=== PATIENT | male | born 1960 | race Caucasian/White ===

== ENCOUNTER 2017-03-27 10:54 | Inpatient (IN) | payer MEDICARE, MEDICAID ==
--- NOTE | 2017-03-27 10:59 | EDM.PDOC ---
ED HPI GENERAL MEDICAL PROBLEM - General Chief Complaint: Respiratory Problem Stated Complaint: COUGH Time Seen by Provider: 03/27/17 11:11 Source of Information: Reports: Other (Caregiver) History Limitations: Reports: No Limitations - History of Present Illness INITIAL COMMENTS - FREE TEXT/NARRATIVE: HISTORY AND PHYSICAL: History of present illness: Patient is a 56-year-old female who presents to the emergency room with complaints of cough and wheezing 2 days. He has a resident of [facility] due to his mental capacity. Does have routine caregivers in his home. The caregiver at the bedside states that they do have several residents who have pneumonia currently and is concerned he may as well. Has had no fever or chills. Denies any chest pain, shortness of breath, abdominal pain, nausea, vomiting or diarrhea. Has been eating and drinking appropriately. No bowel or bladder complaints or concerns. Has received the [id number] influenza vaccine. Review of systems: As per history of present illness and below otherwise all systems reviewed and negative. Past medical history: As per history of present illness and as reviewed below otherwise noncontributory. Surgical history: As per history of present illness and as reviewed below otherwise noncontributory. Social history: No reported history of drug or alcohol abuse. Family history: As per history of present illness and as reviewed below otherwise noncontributory. Physical exam: Gen.: Well-developed and well-nourished 56-year-old male. Alert and appropriate per self, is mentally challenged (normal variance). Appears in no acute distress HEENT: Atraumatic, normocephalic, pupils reactive, negative for conjunctival pallor or scleral icterus, mucous membranes moist, throat clear, neck supple, nontender, trachea midline. Lungs: Right lower lobe expiratory wheezing/rhonchi noted, breath sounds noted bilaterally, chest nontender. Heart: S1S2, regular, negative for clicks, rubs, or JVD. Abdomen: Soft, nondistended, nontender. Negative for masses or hepatosplenomegaly. Negative for costovertebral tenderness. Pelvis: Stable nontender. Genitourinary: Deferred. Rectal: Deferred. Extremities: Atraumatic, negative for cords or calf pain. Neurovascular unremarkable. Neuro: Awake, alert, oriented. Cranial nerves II through XII unremarkable. Cerebellum unremarkable. Motor and sensory unremarkable throughout. Exam nonfocal. Upon arrival of the patient does have oxygen saturation of 89% on room air. Does have blow-by which increases his O2 to 94%. Patient does have a caregiver at the bedside to help keep him calm and assist with cares as he is restless and slightly difficult to perform assessments. Repeat blood pressure is 114/56. Patient's x-ray does not show an obvious pneumonia or infiltrates. The influenza screen is negative. After the DuoNeb the patient's oxygen saturation does not go above 90%. Nursing staff reports that they have seen and as low as 85% while on room air. Due to the patient's symptoms and clinical appearance did consult Dr. Zuluaga. He is agreeable to keeping the patient her IV antibiotics to treat pneumonia versus pneumonitis. Additional labs have been drawn, along with blood cultures. We'll start the patient on Levaquin IV. Zaki- Margareth is here to see the patient for admission. Diagnostics: Influenza, chest x-ray Therapeutics: Supplemental oxygen Impression: Pneumonitis versus pneumonia Plan: Inpatient admission for IV antibiotics and MedSurg. Definitive disposition and diagnosis as appropriate pending reevaluation and review of above. Duration: Day(s): Location: Reports: Chest - Related Data Allergies Allergy/AdvReac Type Severity Reaction Status Date / Time phenytoin [From Dilantin] Allergy Rash Verified 03/27/17 11:05 Home Meds: Home Meds Allopurinol [Zyloprim] 100 mg PO DAILY 03/27/17 [History] Divalproex Sodium 500 mg PO DAILY 03/27/17 [History] Docusate Sodium [Doc-Q-Lace] 100 mg PO DAILY 03/27/17 [History] FLUoxetine [PROzac] 2 tbsp PO DAILY 03/27/17 [History] Famotidine 20 mg PO DAILY 03/27/17 [History] Lactulose [Kristalose] 10 gm PO DAILY 03/27/17 [History] Multivitamin [Multivitamins] 1 cap PO DAILY 03/27/17 [History] Propranolol [Inderal] 60 mg PO DAILY 03/27/17 [History] Triamcinolone Acetonide [Triamcinolone Acetonide 0.1% Crm] 1 gm TOP DAILY [History] Acetaminophen [Tylenol] 650 mg PO Q4H PRN tablet 03/28/17 [Rx] Levofloxacin [Levaquin] 750 mg PO DAILY #6 tab 03/28/17 [Rx] ED ROS GENERAL - Review of Systems Review Of Systems: ROS reveals no pertinent complaints other than HPI. ED EXAM, GENERAL - Physical Exam Exam: See Below (See dictation) Course - Vital Signs Last Recorded V/S: Last Vital Signs Temp 97.4 F 03/28/17 08:00 Pulse 58 L 03/28/17 08:00 Resp 18 03/28/17 08:00 BP 133/83 03/28/17 08:00 Pulse Ox 100 03/28/17 08:00 - Orders/Labs/Meds Labs: Laboratory Tests 03/27/17 03/27/17 03/27/17 Range/Units 12:10 12:24 12:24 WBC 8.70 (4.0-11.0) K/uL RBC 4.14 L (4.50-5.90) M/uL Hgb 13.2 (13.0-17.0) g/dL Hct 39.3 (38.0-50.0) % MCV 94.9 (80.0-98.0) fL MCH 31.9 (27.0-32.0) pg MCHC 33.6 (31.0-37.0) g/dL RDW Std Deviation 47.6 (28.0-62.0) fl RDW Coeff of Rema 14 (11.0-15.0) % Plt Count 321 (150-400) K/uL MPV 9.00 (7.40-12.00) fL Neut % (Auto) 44.7 L (48.0-80.0) % Lymph % (Auto) 42.1 H (16.0-40.0) % [place] % (Auto) 9.3 (0.0-15.0) % Eos % (Auto) 3.6 (0.0-7.0) % Baso % (Auto) 0.3 (0.0-1.5) % Neut # (Auto) 3.9 (1.4-5.7) K/uL Lymph # (Auto) 3.7 H (0.6-2.4) K/uL [place] # (Auto) 0.8 (0.0-0.8) K/uL Eos # (Auto) 0.3 (0.0-0.7) K/uL Baso # (Auto) 0.0 (0.0-0.1) K/uL Nucleated RBC % 0.0 /100WBC Nucleated RBCs # 0 K/uL ABG pH 7.434 (7.35-7.45) ABG pCO2 41 (35-45) mmHG ABG pO2 65 L (75-100) mmHG ABG HCO3 28 H (22-26) mEq/L ABG Total CO2 24.8 ABG Base Excess 3.0 H (-2.0-2.0) Sodium 139 (136-146) mmol/L Potassium 4.7 (3.5-5.1) mmol/L Chloride 104 (98-110) mmol/L Carbon Dioxide 26 (21-31) mmol/L BUN 20 (6.0-23.0) mg/dL Creatinine 1.0 (0.6-1.5) mg/dL Est Cr Clr Drug Dosing 69.07 mL/min Estimated GFR (MDRD) > 60.0 ml/min Glucose 105 (60-110) mg/dL Calcium 8.8 (8.8-10.8) mg/dL Total Bilirubin 0.5 (0.1-1.5) mg/dL AST 22 (5-40) IU/L ALT 14 (8-54) IU/L Alkaline Phosphatase 91 (40-150) Total Protein 9.1 H (6.0-8.0) g/dL Albumin 3.7 (3.5-5.0) g/dL Globulin 5.4 H (2.0-3.5) g/dL Albumin/Globulin Ratio 0.7 L (1.3-2.8) Meds: Medications Discontinued Medications Generic Name Dose Route Start Last Admin Trade Name Freq PRN Reason Stop Dose Admin Acetaminophen 650 mg 03/27/17 12:45 Tylenol PO Q4H PRN Pain (Mild 1-3)/fever Albuterol/Ipratropium 3 ml 03/27/17 11:51 03/27/17 12:00 Duoneb 3.0-0.5 Mg/3 Ml NEB 03/27/17 11:52 3 ml ONETIME ONE Administration Sodium Chloride 1,000 mls @ 125 mls/hr 03/27/17 12:12 03/27/17 12:50 Normal Saline IV 03/27/17 20:11 125 mls/hr STAT ONE Administration Levofloxacin/Dextrose 750 mg/ 150 mls @ 100 mls/hr 03/27/17 12:16 03/27/17 12 :50 Premix IV 03/27/17 13:45 100 mls/hr ONETIME ONE Administration Levofloxacin/Dextrose 750 mg/ 150 mls @ 100 mls/hr 03/28/17 13:00 Premix IV Q24H BRYAN Methylprednisolone Sodium Succinate 125 mg 03/27/17 12:12 03/27/17 12:50 Solu-Medrol IVPUSH 03/27/17 12:13 125 mg ONETIME ONE Administration Ondansetron HCl 4 mg 03/27/17 12:45 Zofran IVPUSH Q4H PRN Nausea Sodium Chloride 10 ml 03/27/17 20:28 Saline Flush FLUSH ASDIRECTED PRN Keep Vein Open Sodium Chloride 2.5 ml 03/27/17 20:28 Saline Flush FLUSH ASDIRECTED PRN Keep Vein Open Departure - Departure Time of Disposition: 12:24 Disposition: Admitted As Inpatient 66 Clinical Impression: Pneumonia, Hypoxia - Discharge Information
[2017-03-27] MEDS ORDERED: Albuterol/Ipratropium 3.0-0.5 MG/3 ML Neb Soln NEB ONE (11:51)
--- NOTE | 2017-03-27 11:53 | CR ---
EXAMINATION: Two-view chest (PA and Lateral views). HISTORY: Shortness of breath. FINDINGS: The trachea is midline. Low lung volumes are noted. The cardiomediastinal silhouette is within normal limits. No pulmonary infiltrates, effusions or pneumothorax. Degenerative versus posttraumatic changes noted at the right acromioclavicular joint. IMPRESSION: No acute cardiopulmonary process.
[2017-03-27] MEDS ORDERED: methylPREDNISolone Sodium Succinate 125 MG/2 ML SDV IVPUSH ONE (12:12)
[2017-03-27] MEDS ORDERED: Sodium Chloride 0.9% 1,000 ML IV ONE (12:12)
[2017-03-27] MEDS ORDERED: Levofloxacin/Dextrose 5%-Water 750 MG in Premix Bag 1 BAG IV ONE (12:16)
[2017-03-27] MEDS ORDERED: Ondansetron 4 MG/2 ML SDV IVPUSH PRN (12:45)
[2017-03-27] MEDS ORDERED: Acetaminophen 325 MG Tab PO PRN (12:45)
--- NOTE | 2017-03-27 12:51 | PCM.HP ---
H&P History of Present Illness - General Admit Problem/Dx: Admission Diagnosis/Problem Admission Diagnosis/Problem Pneumonia - History of Present Illness Initial Comments - Free Text/Narative: 56 yo male with pmh of MR who lives at a nursing home who presents with several day history of cough and raspy growl. At the nursing home four other resident's have pneumonia. Patient is nonverbal. He was noted to be satting in the mid 80s on presentation on RA but he became more alert while obtain the ABG he was satting 95% on room air. - Related Data Allergies/Adverse Reactions: Allergies Allergy/AdvReac Type Severity Reaction Status Date / Time phenytoin [From Dilantin] Allergy Rash Verified 03/27/17 11:05 Home Medications: Home Meds Allopurinol [Zyloprim] 100 mg PO DAILY 03/27/17 [History] Azithromycin 250 mg PO DAILY #6 tab 03/27/17 [Rx] Divalproex Sodium 500 mg PO DAILY 03/27/17 [History] Docusate Sodium [Doc-Q-Lace] 100 mg PO DAILY 03/27/17 [History] FLUoxetine [PROzac] 2 tbsp PO DAILY 03/27/17 [History] Famotidine 20 mg PO DAILY 03/27/17 [History] Lactulose [Kristalose] 10 gm PO DAILY 03/27/17 [History] Multivitamin [Multivitamins] 1 cap PO DAILY 03/27/17 [History] Propranolol [Inderal] 60 mg PO DAILY 03/27/17 [History] Triamcinolone Acetonide [Triamcinolone Acetonide 0.1% Crm] 1 gm TOP DAILY [History] Past Medical History Gastrointestinal History: Reports: Chronic Constipation, GERD, Other (See Below) Other Gastrointestinal History: dysphagia Genitourinary History: Reports: Urinary Incontinence, Other (See Below) Other Genitourinary History: enuresis Musculoskeletal History: Reports: Gout, Other (See Below) Other Musculoskeletal History: scoliosis Neurological History: Reports: Other (See Below) Other Neuro History: spastic quadraplegia Psychiatric History: Reports: Depression, Other (See Below) Other Psychiatric History: insomnia Dermatologic History: Reports: Seborrheic Dermatitis Social & Family History - Family History Family Medical History: Noncontributory - Tobacco Use Smoking Status *Q: Never Smoker - Recreational Drug Use Recreational Drug Use: No H&P Review of Systems - Review of Systems: Review Of Systems: Unable To Obtain Exam - Exam Exam: See Below - Vital Signs Vital Signs: Last Vital Signs Temp 35.9 C 03/27/17 11:11 Pulse 72 03/27/17 11:11 Resp 18 03/27/17 11:11 BP 58/38 L 03/27/17 11:11 Pulse Ox 89 L 03/27/17 11:11 Weight: 68.946 kg - Exam General: No: Mild Distress HEENT: Mucosa Moist & [place] Neck: Supple Lungs: Rhonchi (at bases bilaterally). No: Wheezing Cardiovascular: Regular Rate, Regular Rhythm GI/Abdominal Exam: Soft, Non-Tender Extremities: Non-Tender, No Pedal Edema Skin: Warm, Dry, Intact - Patient Data Lab Results Last 24 hrs: Laboratory Results - last 24 hr 03/27/17 Range/Units 12:10 ABG pH 7.434 (7.35-7.45) ABG pCO2 41 (35-45) mmHG ABG pO2 65 L (75-100) mmHG ABG HCO3 28 H (22-26) mEq/L ABG Total CO2 24.8 ABG Base Excess 3.0 H (-2.0-2.0) Result Diagrams: 03/27/17 12:24 03/27/17 12:24 Cas Results Last 24 hrs: Microbiology 03/27/17 11:28 Influenza Type A Antigen Screen - Final Nasopharyngeal Swab NEGATIVE INFLUENZA A VIRUS AG Influenza Type B Antigen Screen - Final NEGATIVE INFLUENZA B VIRUS AG *Q Meaningful Use (ADM) - VTE *Q VTE Criteria *Q: - Stroke *Q Stroke Criteria *Q: - AMI *Q AMI Criteria *Q: Problem List Initiated/Reviewed/Updated: Yes Orders Last 24hrs: Active Orders 24 hr Category Date Time Status Admission Status [Patient Status] [ADT] Stat ADT 03/27/17 12:25 Active RT Aerosol Therapy [RC] ASDIRECTED Care 03/27/17 11:51 Active CBC WITH AUTO DIFF [HEME] Stat Lab 03/27/17 12:11 Ordered COMPREHENSIVE METABOLIC PN,CMP [CHEM] Stat Lab 03/27/17 12:12 Ordered CULTURE BLOOD [BC] Stat Lab 03/27/17 12:13 Ordered CULTURE BLOOD [BC] Stat Lab 03/27/17 12:13 Ordered CULTURE SPUTUM + SMEAR [RM] Routine Lab 03/27/17 12:41 Uncollected Levofloxacin/Dextrose 5%-Water [Levaquin in D5W 750 MG/ Med 03/27/17 12:16 Active 150 ML] 750 mg Premix Bag 1 bag IV ONETIME Sodium Chloride 0.9% [Normal Saline] 1,000 ml Med 03/27/17 12:12 Active IV STAT Blood Culture x2 Reflex Set [OM.PC] Stat Oth 03/27/17 12:12 Ordered Medication Orders Sodium Chloride (Normal Saline) 1,000 mls @ 125 mls/hr IV STAT ONE Stop: 03/27/17 20:11 Levofloxacin/Dextrose 750 mg/ (Premix) 150 mls @ 100 mls/hr IV ONETIME ONE Stop: 03/27/17 13:45 Assessment/Plan Comment:: 56 yo male with clinic signs of pneumonia but unremarkable CXR. We will treat for pneumonia with Levaquin. Labs of CBC and CMP are pending. Cultures have been ordered.
[2017-03-27 13:21] LABS: CHLORIDE,CL 104 mmol/L (98-110); SODIUM,NA 139 mmol/L (136-146)
[2017-03-27] MEDS ORDERED: Sodium Chloride 0.9% 10 ML Syringe FLUSH PRN (20:28)
[2017-03-27] MEDS ORDERED: Sodium Chloride 0.9% 2.5 ML Syringe FLUSH PRN (20:28)
[2017-03-28 05:47] LABS: CHLORIDE,CL 104 mmol/L (98-110); SODIUM,NA 137 mmol/L (136-146)
--- NOTE | 2017-03-28 11:09 | PCM.DCSUM1 ---
Discharge Summary - Hospital Course Brief History: 56 yo male with pmh of MR who lives at a intermediate who presents with several day history of cough and raspy growl. At the intermediate four other resident's have pneumonia. Patient is nonverbal. He was noted to be satting in the mid 80s on presentation on RA but he became more alert while obtain the ABG he was satting 95% on room air. - Discharge Data Discharge Date: 03/28/17 Discharge Disposition: DC/Tfer to [facility] Home[facility] Condition: Good - Patient Instructions Diet: Pureed (nectar thick liquids) Activity: As Tolerated Showering/Bathing: July Shower Notify Provider of: Fever, Increased Pain, Swelling and Redness, Drainage, Nausea and/or Vomiting - Discharge Plan Prescriptions/Med Rec: Levofloxacin [Levaquin] 750 mg PO DAILY #6 tab Home Medications: Home Meds RX: Allopurinol [Zyloprim] 100 mg PO DAILY 03/27/17 [History] RX: Divalproex Sodium 500 mg PO DAILY 03/27/17 [History] RX: Docusate Sodium [Doc-Q-Lace] 100 mg PO DAILY 03/27/17 [History] RX: FLUoxetine [PROzac] 2 tbsp PO DAILY 03/27/17 [History] RX: Famotidine 20 mg PO DAILY 03/27/17 [History] RX: Lactulose [Kristalose] 10 gm PO DAILY 03/27/17 [History] RX: Multivitamin [Multivitamins] 1 cap PO DAILY 03/27/17 [History] RX: Propranolol [Inderal] 60 mg PO DAILY 03/27/17 [History] RX: Triamcinolone Acetonide [Triamcinolone Acetonide 0.1% Crm] 1 gm TOP DAILY [History] Levofloxacin [Levaquin] 750 mg PO DAILY #6 tab 03/28/17 [Rx] RX: Acetaminophen [Tylenol] 650 mg PO Q4H PRN tablet 03/28/17 [Rx] Patient Handouts: Hypoxemia, Levofloxacin tablets Referrals: Alan Jacob MD [Primary Care Provider] - 04/03/17 3:45 pm - Discharge Summary/Plan Comment DC Time >30 min.: No Discharge Summary/Plan Comment: Discharge Diagnoses: Pneumonia [facility] admitted with suspected pneumonia. He has done well overnight. He is eating and drinking well. Voiding well. He was weaned off oxygen and has been off most of the morning. He appears well, non toxic. No cough or raspy voice noted. He is non -verbal sitting up in bed. Lung sounds clear. Will discharge home today. Labwork WNL, VS stable, afebrile. He will be discharged home on Levaquin for 6 more days for pneumonia. He will be arrange to follow up with PCP in 1 week. Caregivers instructed to bring Vargas back to clinic or ED if concerns should arise. - General Info Date of Service: 03/28/17 Admission Dx/Problem (Free Text: Admission Diagnosis/Problem Admission Diagnosis/Problem Pneumonia Subjective Update: Sitting up in bed, no caregiver at bedside. Vargas non verbal. No acute distress. - Patient Data Vitals - Most Recent: Last Vital Signs Temp 97.4 F 03/28/17 08:00 Pulse 58 L 03/28/17 08:00 Resp 18 03/28/17 08:00 BP 133/83 03/28/17 08:00 Pulse Ox 100 03/28/17 08:00 Weight - Most Recent: 68.946 kg I&O - Last 24 hours: Intake & Output 03/27/17 03/28/17 03/28/17 22:59 06:59 14:59 Intake Total 999 240 Output Total 1718 Balance 999 -1478 Lab Results - Last 24 hrs: Laboratory Results - last 24 hr 03/28/17 03/28/17 Range/Units 04:41 04:41 WBC 9.67 (4.0-11.0) K/uL RBC 4.04 L (4.50-5.90) M/uL Hgb 12.5 L (13.0-17.0) g/dL Hct 37.8 L (38.0-50.0) % MCV 93.6 (80.0-98.0) fL MCH 30.9 (27.0-32.0) pg MCHC 33.1 (31.0-37.0) g/dL RDW Std Deviation 46.4 (28.0-62.0) fl RDW Coeff of Rema 14 (11.0-15.0) % Plt Count 326 (150-400) K/uL MPV 8.90 (7.40-12.00) fL Nucleated RBC % 0.0 /100WBC Nucleated RBCs # 0 K/uL Sodium 137 (136-146) mmol/L Potassium 4.6 (3.5-5.1) mmol/L Chloride 104 (98-110) mmol/L Carbon Dioxide 26 (21-31) mmol/L BUN 19 (6.0-23.0) mg/dL Creatinine 0.9 (0.6-1.5) mg/dL Est Cr Clr Drug Dosing 76.74 mL/min Estimated GFR (MDRD) > 60.0 ml/min Glucose 109 (60-110) mg/dL Calcium 8.5 L (8.8-10.8) mg/dL [id number] Results - Last 24 hrs: Microbiology 03/27/17 12:38 Anaerobic Blood Culture - Final Blood - Venous - Lab Draw Med Orders - Current: Current Medications Acetaminophen (Tylenol) 650 mg PO Q4H PRN PRN Reason: Pain (Mild 1-3)/fever Levofloxacin/Dextrose 750 mg/ (Premix) 150 mls @ 100 mls/hr IV Q24H BRYAN Ondansetron HCl (Zofran) 4 mg IVPUSH Q4H PRN PRN Reason: Nausea Sodium Chloride (Saline Flush) 10 ml FLUSH ASDIRECTED PRN PRN Reason: Keep Vein Open Sodium Chloride (Saline Flush) 2.5 ml FLUSH ASDIRECTED PRN PRN Reason: Keep Vein Open Discontinued Medications Albuterol/Ipratropium (Duoneb 3.0-0.5 Mg/3 Ml) 3 ml NEB ONETIME ONE Stop: 03/27/17 11:52 Last Admin: 03/27/17 12:00 Dose: 3 ml Sodium Chloride (Normal Saline) 1,000 mls @ 125 mls/hr IV STAT ONE Stop: 03/27/17 20:11 Last Admin: 03/27/17 12:50 Dose: 125 mls/hr Levofloxacin/Dextrose 750 mg/ (Premix) 150 mls @ 100 mls/hr IV ONETIME ONE Stop: 03/27/17 13:45 Last Admin: 03/27/17 12:50 Dose: 100 mls/hr Methylprednisolone Sodium Succinate (Solu-Medrol) 125 mg IVPUSH ONETIME ONE Stop: 03/27/17 12:13 Last Admin: 03/27/17 12:50 Dose: 125 mg - Exam General: Reports: Alert, Cooperative, No Acute Distress Neck: Reports: Supple Lungs: Reports: Clear to Auscultation, Normal Respiratory Effort Cardiovascular: Reports: Regular Rate, Regular Rhythm GI/Abdominal Exam: Normal Bowel Sounds, Soft, Non-Tender, No Organomegaly, No Distention, No Abnormal Bruit, No Mass, Pelvis Stable Neurological: Reports: No New Focal Deficit Psy/Mental Status: Reports: Alert, Normal Affect, Normal Mood *Q Meaningful Use (DIS) - VTE *Q VTE Criteria *Q: - Stroke *Q Stroke Criteria *Q: - AMI *Q AMI Criteria *Q:
[2017-03-28] MEDS ORDERED: Levofloxacin/Dextrose 5%-Water 750 MG in Premix Bag 1 BAG IV SCH (13:00)
== END 2017-03-28 12:30 | DRG 193 ==
LOC: MW.ED 10:54 → MW.MS 12:25
PROVIDERS: ADMIT Internal Medicine; ATTEND Internal Medicine
DX: J18.9 Pneumonia, unspecified organism (principal); R09.02 Hypoxemia; G82.50 Quadriplegia, unspecified; K21.9 Gastro-esophageal reflux disease without esophagitis; R47.89 Other speech disturbances; F79 Unspecified intellectual disabilities; F32.9 Major depressive disorder, single episode, unspecified; Z88.8 Allergy status to other drugs, medicaments and biological substances; Z79.899 Other long term (current) drug therapy
CPT/HCPCS: 36415; 36600; 71046; 71046-26; 80048; 80053; 82803; 85025; 85027; 87040; 87804; 94640; 96365; 96375; 99285-25; J1956; J2930; J7040

== ENCOUNTER 2017-08-30 13:04 | Observation (INO) | payer MEDICARE, MEDICAID ==
[2017-08-30] MEDS ORDERED: Sodium Chloride 0.9% 1,000 ML IV SCH (14:00)
[2017-08-30] MEDS ORDERED: Sodium Chloride 0.9% 10 ML Syringe FLUSH PRN ×2 (14:01→17:26)
[2017-08-30] MEDS ORDERED: Sodium Chloride 0.9% 2.5 ML Syringe FLUSH PRN ×2 (14:01→17:26)
[2017-08-30] MEDS ORDERED: Atropine 0.1 MG/ML 10 ML Syringe IVPUSH ONE (14:01)
[2017-08-30] MEDS ORDERED: 25% Dextrose in Water 10 ML Syringe IV ONE (14:02)
--- NOTE | 2017-08-30 14:07 | EDM.PDOC ---
ED HPI GENERAL MEDICAL PROBLEM - General Chief Complaint: General Stated Complaint: given wrong meds Time Seen by Provider: 08/30/17 13:07 Source of Information: Reports: Group Home Records History Limitations: Reports: Altered Mental Status - History of Present Illness INITIAL COMMENTS - FREE TEXT/NARRATIVE: History of present illness: []Patient received 100 mg of Zoloft and 10 mg Zyprexa and some vitamins and supplements that belonged to another patient inadvertently at 8 AM. Patient has been bradycardic, sleeping and not arousable all day. Review of systems: As per history of present illness and below otherwise all systems reviewed and negative. Past medical history: As per history of present illness and as reviewed below otherwise noncontributory. Surgical history: As per history of present illness and as reviewed below otherwise noncontributory. Social history: No reported history of drug or alcohol abuse. Family history: As per history of present illness and as reviewed below otherwise noncontributory. Physical exam: General: Well developed, well nourished in NAD heart rate in the 40s with blood pressure 60 systolic HEENT: Atraumatic, normocephalic, pupils reactive, negative for conjunctival pallor or scleral icterus, mucous membranes dry, throat clear, neck supple, nontender, trachea midline. Lungs: Clear to auscultation, breath sounds equal bilaterally, chest nontender. Heart: S1S2, regular, negative for clicks, rubs, or JVD. Abdomen: Soft, nondistended, nontender. Negative for masses or hepatosplenomegaly. Negative for costovertebral tenderness. Pelvis: Stable nontender. Genitourinary: Deferred. Rectal: Deferred. Extremities: Atraumatic, negative for cords or calf pain. Neurovascular unremarkable. Neuro: Awake, alert, oriented. Cranial nerves II through XII unremarkable. Cerebellum unremarkable. Motor and sensory unremarkable throughout. Exam nonfocal. Diagnostics: []CBC, chemistry Therapeutics: [0.5 MG atropine given, IV hydrated Impression: []Bradycardic hypotensive decreased responsiveness and due to incorrect meds being given Plan: []Admit to ICU for observation Definitive disposition and diagnosis as appropriate pending reevaluation and review of above. - Related Data Allergies Allergy/AdvReac Type Severity Reaction Status Date / Time aspirin Allergy Rash Verified 08/30/17 18:27 phenytoin [From Dilantin] Allergy Rash Verified 08/30/17 13:36 Home Meds: Home Meds Allopurinol [Zyloprim] 100 mg PO DAILY 03/27/17 [History] Divalproex Sodium 500 mg PO DAILY 03/27/17 [History] Docusate Sodium [Doc-Q-Lace] 100 mg PO DAILY 03/27/17 [History] FLUoxetine [PROzac] 2 tbsp PO DAILY 03/27/17 [History] Famotidine 20 mg PO DAILY 03/27/17 [History] Multivitamin [Multivitamins] 1 cap PO DAILY 03/27/17 [History] Triamcinolone Acetonide [Triamcinolone Acetonide 0.1% Crm] 1 gm TOP DAILY [History] Acetaminophen [Tylenol] 650 mg PO Q4H PRN tablet 03/28/17 [Rx] Lactulose [Cephulac] 30 ml PO DAILY 08/30/17 [History] Propranolol [Inderal] 20 mg PO BID #60 tab 08/31/17 [Rx] Past Medical History Gastrointestinal History: Reports: Chronic Constipation, GERD, Other (See Below) Other Gastrointestinal History: dysphagia Genitourinary History: Reports: Urinary Incontinence, Other (See Below) Other Genitourinary History: enuresis Musculoskeletal History: Reports: Gout, Other (See Below) Other Musculoskeletal History: scoliosis Neurological History: Reports: Other (See Below) Other Neuro History: spastic quadraplegia Psychiatric History: Reports: Depression, Other (See Below) Other Psychiatric History: insomnia Dermatologic History: Reports: Seborrheic Dermatitis - Infectious Disease History Infectious Disease History: Reports: Other (See Below) Social & Family History - Family History Family Medical History: Noncontributory - Tobacco Use Smoking Status *Q: Never Smoker - Caffeine Use Caffeine Use: Reports: None - Recreational Drug Use Recreational Drug Use: No ED ROS GENERAL - Review of Systems Review Of Systems: See Below (See history of present illness) ED EXAM, GENERAL - Physical Exam Exam: See Below (See history of present illness) Course - Vital Signs Last Recorded V/S: Last Vital Signs Temp 98.7 F 08/31/17 08:00 Pulse 53 L 08/30/17 15:55 Resp 16 08/31/17 08:00 BP 125/78 08/31/17 08:00 Pulse Ox 95 08/31/17 08:00 - Orders/Labs/Meds Orders: Active Orders 24 hr Category Date Time Status Patient Status [ADT] Stat ADT 08/30/17 14:25 Active Sodium Chloride 0.9% [Saline Flush] Med 08/30/17 14:01 Active 10 ml FLUSH ASDIRECTED PRN Sodium Chloride 0.9% [Saline Flush] Med 08/30/17 14:01 Active 2.5 ml FLUSH ASDIRECTED PRN Saline Lock Insert [OM.PC] Stat Oth 08/30/17 14:00 Ordered Medication Orders Acetaminophen (Tylenol) 650 mg PO Q4H PRN PRN Reason: Pain (Mild 1-3)/fever Allopurinol (Zyloprim) 100 mg PO DAILY [facility] Last Admin: 08/31/17 08:35 Dose: Not Given Admin: 08/31/17 07:30 Dose: 100 mg Divalproex Sodium (Depakote) 500 mg PO DAILY [facility] Last Admin: 08/31/17 08:35 Dose: Not Given Admin: 08/31/17 07:30 Dose: 500 mg Docusate Sodium (Colace) 100 mg PO DAILY [facility] Last Admin: 08/31/17 08:35 Dose: Not Given Admin: 08/31/17 07:30 Dose: 100 mg Enoxaparin Sodium (Lovenox) 40 mg SUBCUT Q24H [facility] Last Admin: 08/30/17 17:38 Dose: 40 mg Famotidine (Pepcid) 20 mg PO DAILY [facility] Last Admin: 08/31/17 08:35 Dose: Not Given Admin: 08/31/17 07:30 Dose: 20 mg Fluoxetine HCl (Prozac) 120 mg PO DAILY [facility] Lactated Ringer's (Ringers, Lactated) 1,000 mls @ 60 mls/hr IV ASDIRECTED [facility] Last Admin: 08/30/17 17:38 Dose: 60 mls/hr Lactulose (Chronulac) 30 gm PO DAILY [facility] Last Admin: 08/31/17 08:35 Dose: Not Given Admin: 08/31/17 07:30 Dose: 30 gm Multivitamins/Minerals (Thera M Plus) 1 tab PO DAILY [facility] Last Admin: 08/31/17 08:35 Dose: Not Given Admin: 08/31/17 07:30 Dose: 1 tab Sodium Chloride (Saline Flush) 10 ml FLUSH ASDIRECTED PRN PRN Reason: Keep Vein Open Sodium Chloride (Saline Flush) 2.5 ml FLUSH ASDIRECTED PRN PRN Reason: Keep Vein Open Sodium Chloride (Saline Flush) 10 ml FLUSH ASDIRECTED PRN PRN Reason: Keep Vein Open Sodium Chloride (Saline Flush) 2.5 ml FLUSH ASDIRECTED PRN PRN Reason: Keep Vein Open Triamcinolone Acetonide (Triamcinolone Acetonide 0.1% Crm) 1 gm TOP DAILY [facility] Last Admin: 08/31/17 09:08 Dose: 1 applic Meds: Medications Generic Name Dose Route Start Last Admin Trade Name Freq PRN Reason Stop Dose Admin Acetaminophen 650 mg 08/30/17 17:29 Tylenol PO Q4H PRN Pain (Mild 1-3)/fever Allopurinol 100 mg 08/31/17 09:00 08/31/17 08:35 Zyloprim PO Not Given DAILY [facility] Divalproex Sodium 500 mg 08/31/17 09:00 08/31/17 08:35 Depakote PO Not Given DAILY [facility] Docusate Sodium 100 mg 08/31/17 09:00 08/31/17 08:35 Colace PO Not Given DAILY [facility] Enoxaparin Sodium 40 mg 08/30/17 17:30 08/30/17 17:38 Lovenox SUBCUT 40 mg Q24H [facility] Administration Famotidine 20 mg 08/31/17 09:00 08/31/17 08:35 Pepcid PO Not Given DAILY [facility] Fluoxetine HCl 120 mg 08/31/17 09:00 Prozac PO DAILY [facility] Lactated Ringer's 1,000 mls @ 60 mls/hr 08/30/17 17:30 08/30/17 17:38 Ringers, Lactated IV 60 mls/hr ASDIRECTED [facility] Administration Lactulose 30 gm 08/31/17 09:00 08/31/17 08:35 Chronulac PO Not Given DAILY [facility] Multivitamins/Minerals 1 tab 08/31/17 09:00 08/31/17 08:35 Thera M Plus PO Not Given DAILY [facility] Sodium Chloride 10 ml 08/30/17 14:01 Saline Flush FLUSH ASDIRECTED PRN Keep Vein Open Sodium Chloride 2.5 ml 08/30/17 14:01 Saline Flush FLUSH ASDIRECTED PRN Keep Vein Open Sodium Chloride 10 ml 08/30/17 17:26 Saline Flush FLUSH ASDIRECTED PRN Keep Vein Open Sodium Chloride 2.5 ml 08/30/17 17:26 Saline Flush FLUSH ASDIRECTED PRN Keep Vein Open Triamcinolone Acetonide 1 gm 08/31/17 09:00 08/31/17 09:08 Triamcinolone Acetonide 0.1% Crm TOP 1 applic DAILY [facility] Administration Discontinued Medications Generic Name Dose Route Start Last Admin Trade Name Oliva PRN Reason Stop Dose Admin Atropine Sulfate 0.5 mg 08/30/17 14:01 08/30/17 14:05 Atropine 0.1 Mg/Ml IVPUSH 08/30/17 14:02 0.5 mg ONETIME ONE Administration Atropine Sulfate 0.5 mg 08/30/17 17:33 08/30/17 17:52 Atropine 1 Mg/Ml IVPUSH 08/30/17 17:34 0.5 mg ONETIME ONE Administration Sodium Chloride 1,000 mls @ 500 mls/hr 08/30/17 14:00 08/30/17 13:56 Normal Saline IV 500 mls/hr ASDIRECTED [facility] Administration Departure - Departure Time of Disposition: 16:10 Disposition: Refer to Observation Condition: Fair, Serious Clinical Impression: Medication administered in error, Bradycardia - Discharge Information - My Orders Last 24 Hours: My Active Orders 08/30/17 14:00 Saline Lock Insert [OM.PC] Stat 08/30/17 14:01 Sodium Chloride 0.9% [Saline Flush] 10 ml FLUSH ASDIRECTED PRN Sodium Chloride 0.9% [Saline Flush] 2.5 ml FLUSH ASDIRECTED PRN 08/30/17 14:25 Patient Status [ADT] Stat - Assessment/Plan Last 24 Hours: My Active Orders 08/30/17 14:00 Saline Lock Insert [OM.PC] Stat 08/30/17 14:01 Sodium Chloride 0.9% [Saline Flush] 10 ml FLUSH ASDIRECTED PRN Sodium Chloride 0.9% [Saline Flush] 2.5 ml FLUSH ASDIRECTED PRN 08/30/17 14:25 Patient Status [ADT] Stat
[2017-08-30 15:14] LABS: CHLORIDE,CL 106 mmol/L (98-107); SODIUM,NA 143 mmol/L (136-148)
[2017-08-30] MEDS ORDERED: Acetaminophen 325 MG Tab PO PRN (17:29)
[2017-08-30] MEDS ORDERED: Lactated Ringers 1,000 ML IV SCH (17:30)
[2017-08-30] MEDS ORDERED: Enoxaparin 40 MG/0.4 ML Syringe SUBCUT SCH (17:30)
[2017-08-30] MEDS ORDERED: Atropine 1 MG/ML SDV IVPUSH ONE (17:33)
--- NOTE | 2017-08-30 21:34 | PCM.SN ---
- Free Text/Narrative Note: [id number]
--- NOTE | 2017-08-31 01:03 | HP ---
DATE OF : 1960 PRIMARY CARE PHYSICIAN: Alan Jacob M.D. CHIEF COMPLAINT: The patient is not arousable. 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 The patient presented to emergency room because in the morning, when the commissary assistant was trying to give the medications to another patient, she gave by mistake the medication to him and patient received Zyprexa 5 mg and Zoloft 100 mg .The staff called called Dr. Jacob, who told them to give the patient his regular medications and later on, his heart rate was 47 and because the patient was drowsy. Staff brought the patient to ER , in Er the patient was not arousable and his heart rate was 39, sinus rhythm PAST MEDICAL HISTORY: The patient has spastic quadriplegia, enuresis, insomnia, self stimulating, compulsive behavior, hepatitis B immune, scoliosis, seborrheic dermatitis, urinary incontinence, gout, constipation, dysphagia/reflux, depression. PAST SURGICAL HISTORY: He had, 04/26/2001, foreign object removed. ALLERGIES: He is allergic to Dilantin. MEDICATIONS: At home, he is on: 1. Multivitamin one tablet p.o. daily. 2. Dulcolax 100 mg two tablets p.o. at bedtime. 3. Lactulose 2 tablespoon 30 mL at bedtime. 4. Propranolol hydrochloride ER 60 mg one tablet p.o. daily. 5. Famotidine 20 mg one tablet two times daily. 6. Paroxetine 20 mg take one tablet in the morning. 7. Triamcinolone 0.1% as needed topical to eczema. 8. Divalproex 500 mg take one tablet two times a day. 9. Allopurinol 100 mg p.o. daily. LABORATORY DATA: At admission, his WBC was 8.65, hemoglobin 13.5, hematocrit 40.6, platelet count 182. Sodium 143, potassium 4.7, chloride 106, carbon dioxide 31.6. BUN 14, creatinine 1.1. GFR is more than 60. Glucose 85, calcium 8.4, total bilirubin 0.2. AST 13, ALT 19, alkaline phosphatase is 77. Total protein 6.9, albumin 2.2, globulin 2.7. His EKG done in the emergency room show sinus bradycardia at 43, left ventricular hypertrophy by voltage criteria. UT interval is 172, QRST 90, QT 502, QTc 425 The patient in emergency room received atropine and his heart rate increased to 63. PHYSICAL EXAMINATION: VITAL SIGNS: At admission, temperature 97 Fahrenheit, pulse rate 38, blood pressure 127/51, respiratory rate 14, oxygen saturation 99%. . HEENT: Head is atraumatic, normocephalic. Pupil, miotic. HEART: S1, S2. Regular rhythm and rate. LUNGS: Clear to auscultation bilaterally. ABDOMEN: Soft, nontender. Positive bowel sounds. The patient is wearing a diaper, is incontinent. EXTREMITIES: He has spastic contracture on four extremities. NEUROLOGIC: The patient was not arousable in the emergency room but when he arrived on the floor after few hours, he was awake. ASSESSMENT AND PLAN: 1. Drowsiness and sleepiness due to antipsychotic administration 2. Severe sinus bradycardia@39 The patient had initially disposition from Er to be admitted to ICU. He was downgraded to telemetry immediately when he became awake . We will give the patient atropine 0.5 mg IV p.r.n. for bradycardia less than 50 . For gout, the patient will be continued with allopurinol 100 mg p.o. daily. For agitation, the patient will be continued with divalproex 500 mg p.o. daily. For DVT prophylaxis, we will put patient on enoxaparin 40 mg subcutaneous q.24 hours. For GERD, the patient will be on famotidine 20 mg p.o. daily. For mood disorder, we will continue patient with fluoxetine 120 mg p.o. daily from tomorrow For seborrheic dermatitis, we will continue the patient with triamcinolone acetonide 0.1% cream topical daily on the area of rash. ANTOPET / MODL /[id number] MTDD
[2017-08-31] MEDS: Docusate Sodium 100 MG Cap PO SCH ×2 (07:30→08:35)
[2017-08-31] MEDS: Lactulose Soln 10 GM/15 ML 15 ML UD Cup PO SCH ×2 (07:30→08:35)
[2017-08-31] MEDS: Famotidine 20 MG Tab PO SCH ×2 (07:30→08:35)
[2017-08-31] MEDS: Divalproex Sodium Delayed-Release 500 MG Tab.CR PO SCH ×2 (07:30→08:35)
[2017-08-31] MEDS: Multivitamins with Iron/Calcium/Folic Acid/Minerals Tab PO SCH ×2 (07:30→08:35)
[2017-08-31] MEDS: Allopurinol 100 MG Tab PO SCH ×2 (07:30→08:35)
[2017-08-31] MEDS ORDERED: Triamcinolone Acetonide 0.1% Crm 15 GM Tube TOP SCH (09:00)
[2017-08-31] MEDS ORDERED: FLUoxetine 20 MG Cap PO SCH (09:00)
--- NOTE | 2017-08-31 23:16 | PCM.SN ---
- Free Text/Narrative Note: [id number]
--- NOTE | 2017-09-01 22:39 | DISCH ---
DATE OF DISCHARGE: 08/31/2017 PRIMARY CARE PHYSICIAN: Alan Jacob M.D. DIAGNOSES AT ADMISSION: 1. Drowsiness and sleepiness due to antipsychotic medication. 2. Severe sinus bradycardia at 39. DIAGNOSES AT DISCHARGE: 1. Drowsiness and sleepiness due to antipsychotic administration. 2. Severe sinus bradycardia at 39. 3. Cerebral palsy. 4. Severe mental retardation. 5. Gastroesophageal reflux disease. 6. Gout. 7. Agitation. HISTORY OF PRESENT ILLNESS: The patient is a 56-year-old man, a jail resident, with severe mental retardation and cerebral palsy with spastic contraction of his upper and lower extremities, presented to emergency room in the morning because when his patient care assistant was trying to give medication to another patient, she gave by mistake the medication to him, and the patient received Zyprexa 5 mg and Zoloft 100 mg of another patient. The staff called Dr. Jacob, who told to give the patient his regular medication, and later on, the patient's heart rate was 47, and the patient was drowsy. Staff brought the patient in the emergency room, and in ER, he was not arousable, and his heart rate was 39 and sinus rhythm. HOSPITAL COURSE: The patient had disposition to be admitted to ICU because he was not arousable, but immediately after a very short time, he became awake. He was treated in the emergency room with atropine 0.5 mg IV, and his heart rate increased to 60s, and the patient was downgraded to telemetry, and he was observed overnight. He received 1 more dose of atropine 0.5 mg on the floor, and his heart rate was maintained in the 50s. The patient was in no distress, and he was discharged in the morning back to the home group with his home medications. Propranolol was decreased to 40 mg a day, 20 mg p.o. b.i.d. to be given only if his heart rate is more than 60. ACTIVITIES AT DISCHARGE: As tolerated. DIET: Usual diet. The patient was discharged home to follow up with Dr. Jacob. LOVE / LUDA /[id number]
== END 2017-08-31 10:00 | disposition home or self-care (01) ==
LOC: MW.ED 13:04 → MW.ICU 14:25
PROVIDERS: ADMIT Internal Medicine; ATTEND Internal Medicine
DX: T43.591A Poisoning by other antipsychotics and neuroleptics, accidental (unintentional), initial encounter (principal); T43.221A Poisoning by selective serotonin reuptake inhibitors, accidental (unintentional), initial encounter; R40.0 Somnolence; R00.1 Bradycardia, unspecified; G80.0 Spastic quadriplegic cerebral palsy; F72 Severe intellectual disabilities; K21.9 Gastro-esophageal reflux disease without esophagitis; M10.9 Gout, unspecified; G47.00 Insomnia, unspecified; F95.1 Chronic motor or vocal tic disorder; M41.9 Scoliosis, unspecified; L21.9 Seborrheic dermatitis, unspecified; K59.09 Other constipation; Z79.899 Other long term (current) drug therapy; Z88.8 Allergy status to other drugs, medicaments and biological substances; Y92.199 Unspecified place in other specified residential institution as the place of occurrence of the external cause
CPT/HCPCS: 36415; 80053; 85025; 93005; 96361; 96374; 99285; A9270; J0461; J1650; J7040; J7120

== ENCOUNTER 2021-06-30 14:49 | Emergency (ER) | payer MEDICARE, MEDICAID | END 2021-06-30 16:46 | disposition left against medical advice (07) | LOC: MW.ED 14:49 | DX: Z53.21 Procedure and treatment not carried out due to patient leaving prior to being seen by health care provider (principal) ==

== ENCOUNTER 2021-07-04 20:37 | Emergency (ER) | payer MEDICARE, MEDICAID ==
[2021-07-04] MEDS: Sodium Chloride 0.9% 1,000 ML IV ONE ×2 (21:14→22:14)
[2021-07-04 21:55] LABS: BLOOD UREA NITROGEN,BUN 26 mg/dL (7.0-18.0); CARBON DIOXIDE,CO2 27.9 mmol/L (21.0-32.0); CHLORIDE,CL 100 mmol/L (98-107); GLUCOSE RANDOM 125 mg/dL (74-106); POTASSIUM,K 4.7 mmol/L (3.5-5.1); SODIUM,NA 138 mmol/L (136-148)
[2021-07-04 22:16] LABS: CORONAVIRUS COVID-19 NAA NEGATIVE (NEGATIVE); INFLUENZA A NAA NEGATIVE (NEGATIVE); INFLUENZA B NAA NEGATIVE (NEGATIVE)
[2021-07-04] MEDS: LORazepam 2 MG/ML SDV ONE (22:23)
[2021-07-04] MEDS: LORazepam 2 MG/ML SDV IVPUSH ONE (22:23)
== END 2021-07-05 00:07 | disposition home or self-care (01) ==
LOC: MW.ED 20:37
DX: R56.9 Unspecified convulsions (principal); E86.0 Dehydration; M10.9 Gout, unspecified; K21.9 Gastro-esophageal reflux disease without esophagitis; Z20.822 Contact with and (suspected) exposure to COVID-19; Z86.16 Personal history of COVID-19; Z79.899 Other long term (current) drug therapy; Z88.8 Allergy status to other drugs, medicaments and biological substances
CPT/HCPCS: 0240U; 36415; 71045; 80053; 81003; 82947; 83735; 84484; 85025; 93005; 96365; 96375; 99285; J1953; J2060; J7030

== ENCOUNTER 2021-07-08 19:15 | Emergency (ER) | payer MEDICARE, MEDICAID ==
[2021-07-08] MEDS ORDERED: Sodium Chloride 0.9% 1,000 ML IV ONE (19:26)
[2021-07-08] MEDS ORDERED: Midazolam 1 MG/ML 2 ML SDV IVPUSH ONE (20:08)
[2021-07-08 20:18] LABS: BLOOD UREA NITROGEN,BUN 28 mg/dL (7.0-18.0); CARBON DIOXIDE,CO2 25.2 mmol/L (21.0-32.0); CHLORIDE,CL 101 mmol/L (98-107); GLUCOSE RANDOM 146 mg/dL (74-106); POTASSIUM,K 4.3 mmol/L (3.5-5.1); SODIUM,NA 137 mmol/L (136-148)
[2021-07-08] MEDS ORDERED: Sodium Chloride 0.9% 1,000 ML IV SCH (23:15)
== END 2021-07-08 23:54 ==
LOC: MW.ED 19:15
DX: G93.9 Disorder of brain, unspecified (principal); M10.9 Gout, unspecified; Z86.16 Personal history of COVID-19; Z79.899 Other long term (current) drug therapy; Z20.822 Contact with and (suspected) exposure to COVID-19; Z88.6 Allergy status to analgesic agent; Z88.8 Allergy status to other drugs, medicaments and biological substances
CPT/HCPCS: 36415; 70450; 71045; 80053; 83605; 83735; 84484; 85025; 96365; 96375; 99285; J1953; J2250; J7030; U0002; 93005